=== PATIENT | male | born 1975 | race Caucasian/White ===

== ENCOUNTER 2021-03-02 18:35 | Emergency (ER) | payer OTHER ==
[2021-03-02] MEDS ORDERED: Ondansetron PF 4 MG/2 ML Vial ONE (18:50)
[2021-03-02] MEDS ORDERED: Fentanyl 100 MCG/2 ML VIAL ONE ×2 (18:50→19:18)
[2021-03-02] MEDS ORDERED: Ketamine 50 MG/ML (10ML VIAL) ONE ×2 (18:50→19:19)
[2021-03-02] MEDS ORDERED: Ketorolac Tromethamine 30 MG/ML VIAL ONE (20:33)
== END 2021-03-03 00:25 ==
LOC: ERS 18:35
DX: S83.004A Unspecified dislocation of right patella, initial encounter (principal); E11.9 Type 2 diabetes mellitus without complications; I10 Essential (primary) hypertension; Z79.82 Long term (current) use of aspirin; Z79.899 Other long term (current) drug therapy; Z79.4 Long term (current) use of insulin; W01.198A Fall on same level from slipping, tripping and stumbling with subsequent striking against other object, initial encounter
CPT/HCPCS: 27560; 96374; 96375; 99152; 99153; J1885; J2405; J3010